=== PATIENT | male | born 1955 | race Caucasian/White ===

== ENCOUNTER → 2017-03-04 | Outpatient (CLI) | payer OTHER | LOC: CIMAGING 07:54 | PROVIDERS: ATTEND Family Medicine | DX: M25.562 Pain in left knee (principal); R60.0 Localized edema | CPT/HCPCS: 73562-PO ==

== ENCOUNTER → 2018-10-26 | Outpatient (CLI) | payer OTHER | LOC: CIMAGING 09:10 | PROVIDERS: ATTEND Family Medicine | DX: M16.11 Unilateral primary osteoarthritis, right hip (principal); M25.851 Other specified joint disorders, right hip | CPT/HCPCS: 73502-PO ==